=== PATIENT | female | born 1955 ===

== ENCOUNTER 2019-11-11 13:59 | Outpatient (CLI) | payer OTHER ==
[~2019-11-11] VITALS: Ht 165.1 cm; Wt 75.3 kg
[2019-11-11] MEDS ORDERED: MULTIVITAMINS1 EAC2 ORAL (14:34)
[2019-11-11] MEDS ORDERED: SLEEP AID25 MG PO (14:34)
[2019-11-11 14:38] VITALS: BP 139/87
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
== END 2019-11-11 16:31 | disposition home or self-care (01) ==
LOC: PAN 13:59
DX: R14.0 Abdominal distension (gaseous) (principal); Z86.010 Personal history of colon polyps; K21.9 Gastro-esophageal reflux disease without esophagitis; R10.9 Unspecified abdominal pain; F17.210 Nicotine dependence, cigarettes, uncomplicated
CPT/HCPCS: G0463

== ENCOUNTER 2020-05-03 09:14 | Outpatient (CLI) | payer OTHER ==
[~2020-05-03 09:14] MED LIST: MULTIVITAMINS1 EAC2 ORAL; SLEEP AID25 MG PO
--- NOTE | 2020-05-03 13:32 | General Progress Note ---
Assessment/Plan Assessment/Plan: s/p recent EGd and colonoscopy in [place] c/o bloating and abd pain trial of Augmentin and Align RTC 3 months Subjective ROS Limited/Unobtainable: Yes Allergies: Coded Allergies: No Known Allergies (Unverified , 11/11/19) Objective General Appearance: alert EENT: normal ENT inspection Neck: supple Cardiovascular: normal rate Respiratory/Chest: decreased breath sounds Abdomen: normal bowel sounds, non tender, soft Extremities: non-tender Damaso Hubbard MD May 03, 2020 13:32
== END 2020-05-03 11:14 | disposition home or self-care (01) ==
LOC: PAN 09:14
DX: R14.0 Abdominal distension (gaseous) (principal); R10.9 Unspecified abdominal pain
CPT/HCPCS: 99212